=== PATIENT | male | born 1960 | race Caucasian/White ===

== ENCOUNTER 2021-06-11 13:31 | Emergency (ER) | payer BC ==
[~2021-06-11] VITALS: Ht 175.3 cm; Wt 102.2 kg
[~2021-06-11 13:31] MED LIST: LIRA0.6P SQ; MULT-1085 PO; VALS160T2 PO; [UNRECOGNIZED DRUG - MIXTURE] PO
[2021-06-11] MEDS ORDERED: iohexol 350MG/ML 100ml bottle IV ONE (13:44)
[2021-06-11 14:09] LABS: BASOPHILS % (AUTO) 0.2 % (0-1); EOSINOPHILS # (AUTO) 0.1 X10'3 (0-0.9); EOSINOPHILS % (AUTO) 2.8 % (0-6); HEMOGLOBIN 15.4 g/dl (14.0-17.9); LYMPHOCYTES % (AUTO) 32.4 % (21-51); MEAN CORPUSCULAR HEMOGLOBIN 34.3 PG (27.0-31.0); MEAN CORPUSCULAR HGB CONC 34.1 g/dL (33.0-36.5); MEAN CORPUSCULAR VOLUME 100.4 FL (78-98); MEAN PLATELET VOLUME 10.1 FL (7.4-10.4); MONOCYTES # (AUTO) 0.6 X10'3 (0-0.9); MONOCYTES % (AUTO) 17.4 % (2-12); NEUTROPHILS # (AUTO) 1.5 X10'3 (1.8-7.7); NEUTROPHILS % (AUTO) 47.2 % (42-75); PLATELET COUNT 155 X10'3 (140-440); RED BLOOD COUNT 4.48 X10'6 (4.70-6.10); WHITE BLOOD COUNT 3.2 X10'3 (4.5-11.0)
[2021-06-11 14:19] LABS: D-DIMER 0.47 MG/L FEU (0-0.50)
[2021-06-11 14:23] LABS: ALANINE AMINOTRANSFERASE 44 U/L (12-78); ALBUMIN 3.3 G/DL (3.4-5.0); ALBUMIN/GLOBULIN RATIO 0.8 (1.1-1.5); ALKALINE PHOSPHATASE 143 IU/L (46-116); ANION GAP 14 (8-16); ASPARTATE AMINO TRANSFERASE 29 U/L (10-37); BILIRUBIN,TOTAL 0.5 MG/DL (0.1-1.0); BLOOD UREA NITROGEN 64 MG/DL (7-18); BUN/CREATININE RATIO 23.6 (5.4-32.0); CALCIUM 8.9 MG/DL (8.5-10.1); CHLORIDE 107 MMOL/L (99-107); CREATININE 2.71 MG/DL (0.60-1.10); GLUCOSE 239 MG/DL (70-104); POTASSIUM 4.6 MMOL/L (3.5-5.1); SODIUM 140 MMOL/L (135-145); TOTAL CARBON DIOXIDE 18.9 MMOL/L (24-32); TOTAL PROTEIN 7.2 G/DL (6.4-8.2); eGFR 24 ML/MIN
[2021-06-11] MEDS ORDERED: normal saline 1000ML IV soln IVB ONE (14:55)
[2021-06-11 14:59] LABS: TOTAL CELLS COUNTED 100
[2021-06-11 15:01] LABS: PLATELET ESTIMATE NORMAL
[2021-06-11] MEDS ORDERED: CefTRIAXone 2gm/D5W 50ml BAG 50 ML IV ONE (18:25)
[2021-06-11] MEDS ORDERED: normal saline 1000ML IV soln IV ONE (18:25)
[2021-06-11] MEDS ORDERED: azithromycin/NS 500mg/250ml 250 ML IV ONE (18:25)
[2021-06-11] MEDS ORDERED: methylPREDNISolone sod succ 125mg/2ml vial IV ONE (18:30)
[2021-06-11] MEDS ORDERED: ipratropium/albuterol 3ml nebule NEB ONE (18:30)
[2021-06-11] MEDS ORDERED: GUAI118S13 PO (18:32)
[2021-06-11] MEDS ORDERED: DOXY100C43 PO (18:32)
[2021-06-11] MEDS ORDERED: ALBU6.7H9 INH (18:32)
[2021-06-11] MEDS ORDERED: PRED10TA23 PO (18:32)
[2021-06-11] MEDS ORDERED: CEPH250T PO (18:32)
[2021-06-11] MEDS ORDERED: BUDE90AE IH (18:32)
--- NOTE | 2021-06-11 22:40 | NUR ---
[employer] swab sent for flu A/B.
--- NOTE | 2021-06-11 22:45 | NUR ---
Pt given and understands d/c instructions. IV d/c'd, catheter was intact. Ambulatory with a steady gait.
[2021-06-11 22:53] VITALS: BP 165/60
== END 2021-06-11 22:45 | disposition home or self-care (01) ==
LOC: ER 13:32
DX: J18.9 Pneumonia, unspecified organism (principal); Z20.822 Contact with and (suspected) exposure to COVID-19; R07.89 Other chest pain; R06.02 Shortness of breath; R06.00 Dyspnea, unspecified; R05 Cough; I10 Essential (primary) hypertension; E11.9 Type 2 diabetes mellitus without complications; Z98.890 Other specified postprocedural states; Z72.89 Other problems related to lifestyle; Z79.2 Long term (current) use of antibiotics; Z79.899 Other long term (current) drug therapy
CPT/HCPCS: 36415; 71045; 71275; 80053; 83880; 84484; 85007; 85025; 85379; 87502; 87503; 87635; 93005; 94640; 96365; 96368; 96375; 99285; C9803; J0456; J0696; J2930; J7030; Q9967; U0003; U0005; 94760